=== PATIENT | male | born 1970 | race Caucasian/White ===

== ENCOUNTER → 2023-04-21 15:13 | Outpatient (BNVA) | payer OTHER, SELFPAY | PROVIDERS: Visit Provider Physician Assistant Medical | DX: S67.197A Crushing injury of left little finger, initial encounter (principal); W23.0XXA Caught, crushed, jammed, or pinched between moving objects, initial encounter | CPT/HCPCS: 29130; 73140; 99203 ==

== ENCOUNTER → 2023-04-24 15:23 | Outpatient (BNVA) | payer OTHER, SELFPAY | PROVIDERS: Visit Provider Physician Assistant Medical | DX: S67.197A Crushing injury of left little finger, initial encounter (principal); W23.0XXA Caught, crushed, jammed, or pinched between moving objects, initial encounter | CPT/HCPCS: 99213 ==

== ENCOUNTER → 2023-05-01 14:24 | Outpatient (BNVA) | payer OTHER, SELFPAY | PROVIDERS: Visit Provider Physician Assistant Medical | DX: S67.197A Crushing injury of left little finger, initial encounter (principal); L03.012 Cellulitis of left finger; W23.0XXA Caught, crushed, jammed, or pinched between moving objects, initial encounter | CPT/HCPCS: 99213 ==

== ENCOUNTER → 2023-05-08 13:26 | Outpatient (BNVA) | payer OTHER, SELFPAY | PROVIDERS: Visit Provider Physician Assistant Medical | DX: S67.197A Crushing injury of left little finger, initial encounter (principal); L03.012 Cellulitis of left finger; W23.0XXA Caught, crushed, jammed, or pinched between moving objects, initial encounter | CPT/HCPCS: 99213 ==

== ENCOUNTER 2023-06-17 15:58 | Outpatient (REF) | payer OTHER, SELFPAY | END 2023-06-17 15:59 | disposition home or self-care (01) | LOC: HO.HOSX 15:58 | PROVIDERS: Visit Provider Orthopaedic Surgery | DX: Z13.89 Encounter for screening for other disorder (principal) ==

== ENCOUNTER 2023-06-18 10:11 | Outpatient (REF) | payer OTHER, SELFPAY | END 2023-06-18 10:12 | disposition home or self-care (01) | LOC: HO.HOSX 10:11 | PROVIDERS: Visit Provider Orthopaedic Surgery | DX: Z13.89 Encounter for screening for other disorder (principal) ==